=== PATIENT | female | born 1970 | race Caucasian/White ===

== ENCOUNTER → 2017-05-14 | Outpatient (CLI) | payer OTHER ==
[~2017-05-14] MED LIST: ACETAMINOPHEN325 M1 OR; IBUPROFEN 200200 M1 OR; IBUPROFEN 600600 M1 PO; MEDROXYPROGESTERONE OR; NORCO 5-325 TA1 EACH PO; SYNTHROID75 MCG PO; THERA-M CAPLET1 EACH OR
== END ==
LOC: RAD 15:23
DX: Z12.31 Encounter for screening mammogram for malignant neoplasm of breast (principal)

== ENCOUNTER → 2018-07-25 | Outpatient (CLI) | payer OTHER | LOC: RAD 11:41 | DX: Z12.31 Encounter for screening mammogram for malignant neoplasm of breast (principal) ==

== ENCOUNTER → 2019-07-25 | Outpatient (CLI) | payer OTHER ==
[2019-07-25 09:05] LABS: APTT 29.8 Seconds (24.5-32.8); PROTIME 10.5 Seconds (9.3-11.4)
== END | disposition home or self-care (01) ==
LOC: RAD 07:46
PROVIDERS: Radiology Diagnostic Radiology
DX: M50.121 Cervical disc disorder at C4-C5 level with radiculopathy (principal); Z79.899 Other long term (current) drug therapy; Z98.890 Other specified postprocedural states; Z79.891 Long term (current) use of opiate analgesic

== ENCOUNTER → 2019-08-23 | Outpatient (CLI) | payer OTHER | LOC: RAD 10:24 | DX: Z12.31 Encounter for screening mammogram for malignant neoplasm of breast (principal) ==